=== PATIENT | female | born 1995 | race African-American/Black ===

== ENCOUNTER 2016-06-06 22:36 | Emergency (ER) | payer MEDICAID, OTHER ==
[~2016-06-06] VITALS: Ht 160 cm; Wt 48.5 kg
[~2016-06-06 22:36] MED LIST: ADDE15XR PO; CYPR4TAB PO; SERO300T PO
[2016-06-06 22:39] VITALS: BP 106/65; PULSE 58; RESP 16; TEMP 98; O2SAT 99
[2016-06-07] MEDS ORDERED: IBUP-232 PO (02:26)
== END 2016-06-06 23:35 | disposition left against medical advice (07) ==
LOC: NEPC 22:36
DX: R07.9 Chest pain, unspecified (principal)
CPT/HCPCS: 99281

== ENCOUNTER 2016-06-07 00:35 | Emergency (ER) | payer MEDICAID, OTHER ==
[~2016-06-07] VITALS: Ht 160 cm; Wt 61.5 kg
[2016-06-07 00:52] VITALS: BP 112/75; PULSE 74; RESP 18; O2SAT 99
[2016-06-07] MEDS ORDERED: KETOROLAC TROMETHAMINE 30 MG/ML (IVP) VIAL IV PUSH ONE (01:00)
[2016-06-07] MEDS ORDERED: SODIUM CHLORIDE 0.9% FLUSH 5 ML FLUSH IVF PRN (01:00)
--- NOTE | 2016-06-07 01:02 | RADHPO ---
EXAM DATE/TIME: 06/07/2016 00:55 [place] COMPARISON: No previous studies available for comparison. INDICATIONS : Chest pain. MEDICAL HISTORY : Asthma. SURGICAL HISTORY : None. ENCOUNTER: Initial ACUITY: 1 day PAIN SCORE: 9/10 LOCATION: Bilateral chest FINDINGS: A single view of the chest demonstrates the lungs to be symmetrically aerated without evidence of mas s, infiltrate or effusion. The cardiomediastinal contours are unremarkable. Osseous structures are intact. CONCLUSION: No acute disease. Neil Jones MD on June 07, 2016 at 0:59 Board Certified Radiologist. This report was verified electronically.
[2016-06-07 01:06] VITALS: BP_SYST 112; BP_DIAS 73; BP_DIAS 77; PULSE 68; RESP 20; O2SAT 99
[2016-06-07 01:21] LABS: CHLORIDE 106 MEQ/L (98-107); POTASSIUM 3.1 MEQ/L (3.5-5.1); SODIUM (NA) 142 MEQ/L (136-145)
[2016-06-07 01:24] LABS: ANION GAP 9 MEQ/L (5-15); BASOPHIL # 0.1 TH/MM3 (0-0.2); BASOPHIL % 0.8 % (0.0-2.0); BICARBONATE 27.5 MEQ/L (21.0-32.0); BLOOD UREA NITROGEN 10 MG/DL (7-18); EOSINOPHIL # 0.2 TH/MM3 (0-0.4); EOSINOPHIL % 1.6 % (0.0-4.0); HEMATOCRIT 39.6 % (35.0-46.0); HEMO FLAGS DIFF FINAL; LYMPH % 20.6 % (9.0-44.0); LYMPHOCYTE # 2.6 TH/MM3 (1.0-4.8); MAGNESIUM 2.3 MG/DL (1.5-2.5); MEAN CELL VOLUME 86.1 FL (80.0-100.0); MEAN CORPUSCULAR HEMOGLOBIN 29.3 PG (27.0-34.0); MONO % 4.7 % (0.0-8.0); NEUT % 72.3 % (16.0-70.0); PLATELET COUNT 317 TH/MM3 (150-450); RED CELL DISTRIBUTION WIDTH 13.3 % (11.6-17.2); WHITE BLOOD COUNT 12.5 TH/MM3 (4.0-11.0)
[2016-06-07 01:27] LABS: GLOMERULAR FILTRATION RATE 112 ML/MIN (>89)
[2016-06-07] MEDS ORDERED: POTASSIUM CHLORIDE 20 MEQ CONTROLLED RELEASE TAB PO ONE (01:30)
[2016-06-07 01:58] VITALS: RESP 18
--- NOTE | 2016-06-07 02:21 | PD ---
HPI Chief Complaint: Abdominal Pain Time Seen by Provider: 00:50 Travel History International Travel<30 days: No Contact w/Intl Traveler<30days: No Traveled to known affect area: No History of Present Illness HPI 20 year-old female presents to the emergency department for complaint of chest pain and shortness of breath for the past several days. Patient was reportedly seen at [facility] but because not be seen quickly enough so decided to come to the emergency room here. Patient denies any fever chills nausea vomiting productive cough injury control pill use personal history of family history of clotting disorder or cardiac disease. Patient reports she has severe pain that is unrelieved by Tylenol or ibuprofen. Unable to identify exacerbating or alleviating factors. Pain 10/10 in intensity. PFSH Past Medical History Narrative Medical ADD ADHD asthma bipolar disorder migraine tobacco use alcohol use substance use nursing notes reviewed ADD: Yes ADHD: Yes Asthma: Yes Blood Disorders: No Bipolar Disorder: Yes Anxiety: Yes Depression: No Cancer: No Cardiovascular Problems: No Developmental Delay: No Diabetes: No Diminished Hearing: No Gastrointestinal Disorders: No Neurologic: No Psychiatric: Yes (OCD, ADD, ADHD, ANXIETY) Respiratory: Yes (ASTHMA) Immunizations Current: Yes Migraines: Yes Seizures: No Thyroid Disease: No Tetanus Vaccination: Unknown Influenza Vaccination: No ?: Not LMP: 05/17/16 Past Surgical History Other Surgery: Yes ("HEAD SURGERY") Social History Alcohol Use: Yes (OCC) Tobacco Use: Yes (1 PPD) Substance Use: Yes (MARIJUANA) Allergies-Medications (Allergen,Severity, Reaction): Coded Allergies: No Known Allergies (Verified , 06/07/16) Reported Meds & Prescriptions Reported Meds & Active Scripts Active Ibuprofen 600 Mg Tab 600 Mg PO Q6H PRN Review of Systems Except as stated in HPI: all other systems reviewed are Neg General / Constitutional: No: Fever, Chills HENT: No: Congestion Cardiovascular: Positive: Chest Pain or Discomfort Respiratory: Positive: Shortness of Breath Gastrointestinal: No: Vomiting, Abdominal Pain Genitourinary: No: Flank Pain Musculoskeletal: No: Myalgias, Arthralgias Skin: No Rash Neurologic: No: Weakness Psychiatric: Positive: Anxiety Hematologic/Lymphatic: No: Lymph Node Enlargement Physical Exam Narrative GENERAL: Well-developed well-nourished female in no respiratory distress stating "I'm having chest pain" SKIN: Warm and dry. HEAD: Normocephalic. EYES: No scleral icterus. No injection or drainage. NECK: Supple, trachea midline. No JVD or lymphadenopathy. CARDIOVASCULAR: Regular rate and rhythm without murmurs, gallops, or rubs. Chest wall: Tenderness to palpation without ecchymosis erythema induration bony point tenderness or crepitus RESPIRATORY: Breath sounds equal bilaterally. No accessory muscle use. GASTROINTESTINAL: Abdomen soft, non-tender, nondistended. MUSCULOSKELETAL: No cyanosis, or edema. BACK: Nontender without obvious deformity. No CVA tenderness. Data Data Last Documented VS Vital Signs Date Time Temp Pulse Resp B/P Pulse Ox O2 Delivery O2 Flow Rate FiO2 06/07/16 02:38 65 17 107/68 99 06/07/16 01:06 Room Air Orders Electrocardiogram (06/07/16 00:50) Basic Metabolic Panel (Bmp) (06/07/16 00:50) Complete Blood Count With Diff (06/07/16 00:50) Magnesium (Mg) (06/07/16 00:50) Troponin I (06/07/16 00:50) Chest, Single Ap (06/07/16 00:50) Ecg Monitoring (06/07/16 00:50) Bilateral Bp Monitoring (06/07/16 00:50) Iv Access Insert/Monitor (06/07/16 00:50) Oximetry (06/07/16 00:50) Oxygen Administration (06/07/16 00:50) Sodium Chloride 0.9% Flush (Ns Flush) (06/07/16 01:00) Ed Urine Pregnancytest Poc (06/07/16 00:50) Ketorolac Inj (Toradol Inj) (06/07/16 01:00) Potassium Chloride (Kcl) (06/07/16 01:30) Labs Laboratory Tests Test 06/07/16 01:00 White Blood Count 12.5 TH/MM3 Red Blood Count 4.60 MIL/MM3 Hemoglobin 13.5 GM/DL Hematocrit 39.6 % Mean Corpuscular Volume 86.1 FL Mean Corpuscular Hemoglobin 29.3 PG Mean Corpuscular Hemoglobin 34.0 % Concent Red Cell Distribution Width 13.3 % Platelet Count 317 TH/MM3 Mean Platelet Volume 7.6 FL Neutrophils (%) (Auto) 72.3 % Lymphocytes (%) (Auto) 20.6 % Monocytes (%) (Auto) 4.7 % Eosinophils (%) (Auto) 1.6 % Basophils (%) (Auto) 0.8 % Neutrophils # (Auto) 9.0 TH/MM3 Lymphocytes # (Auto) 2.6 TH/MM3 Monocytes # (Auto) 0.6 TH/MM3 Eosinophils # (Auto) 0.2 TH/MM3 Basophils # (Auto) 0.1 TH/MM3 CBC Comment DIFF FINAL Differential Comment Sodium Level 142 MEQ/L Potassium Level 3.1 MEQ/L Chloride Level 106 MEQ/L Carbon Dioxide Level 27.5 MEQ/L Anion Gap 9 MEQ/L Blood Urea Nitrogen 10 MG/DL Creatinine 0.80 MG/DL Estimat Glomerular Filtration 112 ML/MIN Rate Random Glucose 94 MG/DL Calcium Level 8.6 MG/DL Magnesium Level 2.3 MG/DL Troponin I LESS THAN 0.02 NG/ML MDM Medical Decision Making Medical Screen Exam Complete: Yes Emergency Medical Condition: Yes Medical Record Reviewed: Yes Interpretation(s) Last Impressions Chest X-Ray 06/07/16 0050 Signed Impressions: Service Date/Time: Tuesday, June 07, 2016 00:55 - CONCLUSION: No acute disease. Neil Jones MD CBC & BMP Diagram 06/07/16 01:00 Vital Signs Date Time Temp Pulse Resp B/P Pulse Ox O2 Delivery O2 Flow Rate FiO2 06/07/16 01:06 68 20 112/73 99 Room Air 112/77 06/07/16 01:06 Room Air 06/07/16 01:06 Room Air 06/07/16 00:52 74 18 112/75 99 Differential Diagnosis Chest pain, atypical chest pain, pneumothorax, pleurisy, costochondritis, pneumothorax, PE, ACS, anxiety Narrative Course Patient placed on surveillance system monitor EKG performed specimens collected and sent for resulting sinus bradycardia no acute injury pattern change Patient administered Toradol Patient reports she is ready to be discharged feels well after IV Toradol and is ready to go back to be discharged this time. Patient informed of lab results chest x-ray EKG findings and recommendation for adding potassium- containing foods and beverages to dietary intake Diagnosis Primary Impression: Atypical chest pain Additional Impression: Hypokalemia Referrals: Primary Care Physician call for appointment Patient Instructions: General Instructions Additional Instructions: Increase fluid hydration And potassium containing foods and beverages to dietary intake Take medication as prescribed Follow-up with your primary care provider Tobacco use and substance use Med/Other Pt SpecificInfo: Prescription(s) given Scripts Ibuprofen 600 Mg [id number] Mg PO Q6H PRN (PAIN GREATER THAN 5) #12 TAB Ref 0 Prov:Maura Segura MD 06/07/16 Disposition: 01 DISCHARGE HOME Condition: Stable Maura Segura MD Jun 07, 2016 02:20
[2016-06-07] MEDS ORDERED: IBUP-232 PO (02:26)
[2016-06-07 02:38] VITALS: BP 107/68
--- NOTE | 2016-06-07 22:03 | EKG ---
Date Performed: 06/07/2016 Time Performed: 01:14:28 PTAGE: 20 years EKG: Sinus bradycardia with sinus arrhythmia. Normal ECG except for rate NO PREVIOUS TRACING DOCTOR: Martha Ozuna Interpretating Date/Time 06/07/2016 22:01:53
== END 2016-06-07 02:43 | disposition home or self-care (01) ==
LOC: PHED 00:35
DX: R07.89 Other chest pain (principal); E87.6 Hypokalemia; J45.909 Unspecified asthma, uncomplicated; R00.1 Bradycardia, unspecified; F17.210 Nicotine dependence, cigarettes, uncomplicated
CPT/HCPCS: 71010; 80048; 83735; 84484; 84703; 85025; 93005; 96374; 99285; J1885

== ENCOUNTER 2016-06-15 12:46 | Emergency (ER) | payer MEDICAID ==
[~2016-06-15] VITALS: Ht 160 cm; Wt 61.5 kg
[~2016-06-15 12:46] MED LIST changes: -ADDE15XR PO; -CYPR4TAB PO; +IBUP-232 PO; -SERO300T PO
[2016-06-15 12:47] VITALS: BP 103/58; PULSE 85; RESP 16; TEMP 97.9; O2SAT 98
--- NOTE | 2016-06-15 13:28 | PD ---
HPI Chief Complaint: Medical Clearance Time Seen by Provider: 13:24 Travel History International Travel<30 days: No Contact w/Intl Traveler<30days: No Traveled to known affect area: No History of Present Illness HPI 20-year-old Patient is here for medical clearance so she can return to work after being diagnosed with conjunctivitis. Patient has been using her eyedrops for the past week and symptoms of improved. 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 She has no other current complaints. She has no known drug allergies. PFSH Past Medical History ADD: Yes ADHD: Yes Asthma: Yes Blood Disorders: No Bipolar Disorder: Yes Anxiety: Yes Depression: No Cancer: No Cardiovascular Problems: No Developmental Delay: No Diabetes: No Diminished Hearing: No Gastrointestinal Disorders: No Neurologic: No Psychiatric: Yes (OCD, ADD, ADHD, ANXIETY) Respiratory: Yes (ASTHMA) Immunizations Current: Yes Migraines: Yes Seizures: No Thyroid Disease: No ?: Not LMP: 05/20/16 Past Surgical History Other Surgery: Yes ("HEAD SURGERY") Social History Alcohol Use: Yes (OCC) Tobacco Use: Yes (1 PPD) Substance Use: Yes (MARIJUANA) Allergies-Medications (Allergen,Severity, Reaction): Coded Allergies: No Known Allergies (Verified , 06/07/16) Reported Meds & Prescriptions Reported Meds & Active Scripts Active Ibuprofen 600 Mg Tab 600 Mg PO Q6H PRN Review of Systems Except as stated in HPI: all other systems reviewed are Neg General / Constitutional: No: Fever Eyes: No: Visual changes HENT: No: Headaches Cardiovascular: No: Chest Pain or Discomfort Respiratory: No: Shortness of Breath Gastrointestinal: No: Abdominal Pain Genitourinary: No: Dysuria Musculoskeletal: No: Pain Skin: No Rash Neurologic: No: Weakness Psychiatric: No: Depression Endocrine: No: Polydipsia Hematologic/Lymphatic: No: Easy Bruising Physical Exam Narrative GENERAL: No acute distress. SKIN: Warm and dry. HEAD: Atraumatic. Normocephalic. EYES: Pupils equal and round. No scleral icterus. No injection or drainage. ENT: No nasal bleeding or discharge. Mucous membranes pink and moist. Pharynx is normal. NECK: Trachea midline. No JVD. Supple nontender. CARDIOVASCULAR: Regular rate and rhythm. RESPIRATORY: No accessory muscle use. Clear to auscultation. Breath sounds equal bilaterally. MUSCULOSKELETAL: Extremities without clubbing, cyanosis, or edema. No obvious deformities. NEUROLOGICAL: Awake and alert. No obvious cranial nerve deficits. Motor grossly within normal limits. Five out of 5 muscle strength in the arms and legs. Normal speech. PSYCHIATRIC: Appropriate mood and affect; insight and judgment normal. Data Data Last Documented VS Vital Signs Date Time Temp Pulse Resp B/P Pulse Ox O2 Delivery O2 Flow Rate FiO2 06/15/16 12:47 97.9 85 16 103/58 98 Room Air MDM Medical Decision Making Medical Screen Exam Complete: Yes Emergency Medical Condition: Yes Differential Diagnosis Conjunctivitis. Need for medical clearance. Need for work note. Narrative Course Patient is medically stable. Patient is to finish upper ophthalmic drops as previous. Work note is given. Diagnosis Primary Impression: Conjunctivitis Qualified Code: H10.33 - Acute bacterial conjunctivitis of both eyes Referrals: Primary Care Physician Patient Instructions: General Instructions Departure Forms: Work Release Enter return to work date: Jun 16, 2016 Med/Other Pt SpecificInfo: No Change to Meds Disposition: 01 DISCHARGE HOME Condition: Stable Ashish Ellis Jun 15, 2016 13:28
== END 2016-06-15 14:37 | disposition home or self-care (01) ==
LOC: NEPB 12:46
DX: H10.33 Unspecified acute conjunctivitis, bilateral (principal)
CPT/HCPCS: 99281

== ENCOUNTER 2016-07-26 21:03 | Emergency (ER) | payer MEDICAID, OTHER ==
[2016-07-26 22:21] LABS: AUTOMATED NEUTROPHIL # 11.6 TH/MM3 (1.8-7.7); BASOPHIL % 0.4 % (0.0-2.0); EOSINOPHIL % 0.2 % (0.0-4.0); HEMATOCRIT 41.1 % (35.0-46.0); HEMO FLAGS DIFF FINAL; LYMPH % 7.6 % (9.0-44.0); MEAN CELL VOLUME 88.1 FL (80.0-100.0); MEAN CORPUSCULAR HGB CONC 34.1 % (32.0-36.0); MONO % 4.1 % (0.0-8.0); NEUT % 87.7 % (16.0-70.0); PLATELET COUNT 283 TH/MM3 (150-450); RED BLOOD COUNT 4.66 MIL/MM3 (4.00-5.30); RED CELL DISTRIBUTION WIDTH 13.9 % (11.6-17.2); WHITE BLOOD COUNT 13.2 TH/MM3 (4.0-11.0)
[2016-07-26] MEDS ORDERED: HALOPERIDOL LACTATE 5 MG/ML AMP IM ONE (22:30)
[2016-07-26] MEDS ORDERED: diphenhydrAMINE HCL 50 MG/ML VIAL IM ONE (22:30)
[2016-07-26] MEDS ORDERED: LORazepam 2 MG/ML VIAL IM ONE (22:30)
[2016-07-26 22:49] LABS: ANION GAP 8 MEQ/L (5-15); AST (GOT) 16 U/L (16-38); BICARBONATE 23.9 MEQ/L (21.0-32.0); BLOOD UREA NITROGEN 9 MG/DL (7-18); CHLORIDE 108 MEQ/L (98-107); GLOMERULAR FILTRATION RATE 87 ML/MIN (>89); POTASSIUM 3.8 MEQ/L (3.5-5.1); SODIUM (NA) 140 MEQ/L (136-145)
[2016-07-26 22:51] LABS: ALKALINE PHOSPHATASE 49 U/L (45-117); ALT (GPT) 21 U/L (9-42); TOTAL BILIRUBIN ADULT 0.4 MG/DL (0.2-1.0)
[2016-07-26 22:53] LABS: ACETAMINOPHEN LESS THAN 2.0 MCG/ML (10.0-30.0)
--- NOTE | 2016-07-27 00:26 | PD ---
HPI Chief Complaint: Psychiatric Symptoms Time Seen by Provider: 00:23 Travel History International Travel<30 days: No Contact w/Intl Traveler<30days: No Traveled to known affect area: No History of Present Illness HPI 20-year-old black female presents to emergency department under [place] act by PD. The patient had allegedly made suicidal statements. She had gone into the bathroom with a knife. The patient here denies making any statements. She denies any suicidal homicidal ideation. She denies any toxic ingestions. PFSH Past Medical History ADD: Yes ADHD: Yes Asthma: Yes Blood Disorders: No Bipolar Disorder: Yes Anxiety: Yes Depression: No Cancer: No Cardiovascular Problems: No Developmental Delay: No Diabetes: No Diminished Hearing: No Gastrointestinal Disorders: No Neurologic: No Psychiatric: Yes (OCD, ADD, ADHD, ANXIETY) Respiratory: Yes (ASTHMA) Immunizations Current: Yes Migraines: Yes Seizures: No Thyroid Disease: No Tetanus Vaccination: < 5 Years Past Surgical History Narrative Surgical Right index finger surgery, forearm surgery Other Surgery: Yes ("HEAD SURGERY") Social History Alcohol Use: Yes (OCC) Tobacco Use: Yes (1 PPD) Substance Use: Yes (MARIJUANA) Allergies-Medications (Allergen,Severity, Reaction): Coded Allergies: No Known Allergies (Verified , 06/07/16) Reported Meds & Prescriptions Reported Meds & Active Scripts Active Ibuprofen 600 Mg Tab 600 Mg PO Q6H PRN Review of Systems Except as stated in HPI: all other systems reviewed are Neg Psychiatric: Positive: Mood Disorder, Substance Abuse, No: Anxiety, Depression , Suicidal Ideations, Disorder of Thought, Homicidal Ideation Physical Exam Narrative GENERAL: Well-nourished, well-developed patient. SKIN: Warm and dry. HEAD: Normocephalic and atraumatic. EYES: No scleral icterus. No injection or drainage. ENT: No nasal drainage noted. Mucous membranes pink. Airway patent. NECK: Supple, trachea midline. Moves head freely without obvious discomfort. CARDIOVASCULAR: Regular rate and rhythm without murmurs, gallops, or rubs. RESPIRATORY: Breath sounds equal bilaterally. No accessory muscle use. GASTROINTESTINAL: Abdomen soft, non-tender, nondistended. EXTREMITIES: No cyanosis or edema. BACK: Nontender without obvious deformity. No CVA tenderness. NEURO: Patient is alert and oriented. no sensorimotor deficits. Nonfocal. Normal speech. PSYCH: No delusions. No auditory or visual hallucinations. Data Data Orders Complete Blood Count With Diff (07/26/16 21:53) Comprehensive Metabolic Panel (07/26/16 21:53) Alcohol (Ethanol) (07/26/16 21:53) Salicylates (Aspirin) (07/26/16 21:53) Psych Screen (07/26/16 21:53) Tylenol (Acetaminophen) (07/26/16 21:53) Drug Screen, Random Urine (07/26/16 21:53) Ed Urine Pregnancytest Poc (07/26/16 21:53) Lorazepam Inj (Ativan Inj) (07/26/16 22:30) Haloperidol Inj (Haldol Inj) (07/26/16 22:30) Diphenhydramine Inj (Benadryl Inj) (07/26/16 22:30) Restraints Violent (07/26/16 23:01) Diet Regular Basic (07/27/16 Breakfast) Labs Laboratory Tests Test 07/26/16 21:40 White Blood Count 13.2 TH/MM3 Red Blood Count 4.66 MIL/MM3 Hemoglobin 14.0 GM/DL Hematocrit 41.1 % Mean Corpuscular Volume 88.1 FL Mean Corpuscular Hemoglobin 30.0 PG Mean Corpuscular Hemoglobin 34.1 % Concent Red Cell Distribution Width 13.9 % Platelet Count 283 TH/MM3 Mean Platelet Volume 7.5 FL Neutrophils (%) (Auto) 87.7 % Lymphocytes (%) (Auto) 7.6 % Monocytes (%) (Auto) 4.1 % Eosinophils (%) (Auto) 0.2 % Basophils (%) (Auto) 0.4 % Neutrophils # (Auto) 11.6 TH/MM3 Lymphocytes # (Auto) 1.0 TH/MM3 Monocytes # (Auto) 0.5 TH/MM3 Eosinophils # (Auto) 0.0 TH/MM3 Basophils # (Auto) 0.0 TH/MM3 CBC Comment DIFF FINAL Differential Comment Sodium Level 140 MEQ/L Potassium Level 3.8 MEQ/L Chloride Level 108 MEQ/L Carbon Dioxide Level 23.9 MEQ/L Anion Gap 8 MEQ/L Blood Urea Nitrogen 9 MG/DL Creatinine 0.99 MG/DL Estimat Glomerular Filtration 87 ML/MIN Rate Random Glucose 84 MG/DL Calcium Level 9.2 MG/DL Total Bilirubin 0.4 MG/DL Aspartate Amino Transf 16 U/L (AST/SGOT) Alanine Aminotransferase 21 U/L (ALT/SGPT) Alkaline Phosphatase 49 U/L Total Protein 8.0 GM/DL Albumin 4.4 GM/DL Salicylates Level 1.7 MG/DL Acetaminophen Level LESS THAN 2.0 MCG/ML Ethyl Alcohol Level LESS THAN 3 MG/DL MDM Medical Decision Making Medical Screen Exam Complete: Yes Emergency Medical Condition: Yes Medical Record Reviewed: Yes Interpretation(s) Laboratory Tests Test 07/26/16 21:40 White Blood Count 13.2 TH/MM3 Red Blood Count 4.66 MIL/MM3 Hemoglobin 14.0 GM/DL Hematocrit 41.1 % Mean Corpuscular Volume 88.1 FL Mean Corpuscular Hemoglobin 30.0 PG Mean Corpuscular Hemoglobin 34.1 % Concent Red Cell Distribution Width 13.9 % Platelet Count 283 TH/MM3 Mean Platelet Volume 7.5 FL Neutrophils (%) (Auto) 87.7 % Lymphocytes (%) (Auto) 7.6 % Monocytes (%) (Auto) 4.1 % Eosinophils (%) (Auto) 0.2 % Basophils (%) (Auto) 0.4 % Neutrophils # (Auto) 11.6 TH/MM3 Lymphocytes # (Auto) 1.0 TH/MM3 Monocytes # (Auto) 0.5 TH/MM3 Eosinophils # (Auto) 0.0 TH/MM3 Basophils # (Auto) 0.0 TH/MM3 CBC Comment DIFF FINAL Differential Comment Sodium Level 140 MEQ/L Potassium Level 3.8 MEQ/L Chloride Level 108 MEQ/L Carbon Dioxide Level 23.9 MEQ/L Anion Gap 8 MEQ/L Blood Urea Nitrogen 9 MG/DL Creatinine 0.99 MG/DL Estimat Glomerular Filtration 87 ML/MIN Rate Random Glucose 84 MG/DL Calcium Level 9.2 MG/DL Total Bilirubin 0.4 MG/DL Aspartate Amino Transf 16 U/L (AST/SGOT) Alanine Aminotransferase 21 U/L (ALT/SGPT) Alkaline Phosphatase 49 U/L Total Protein 8.0 GM/DL Albumin 4.4 GM/DL Salicylates Level 1.7 MG/DL Acetaminophen Level LESS THAN 2.0 MCG/ML Ethyl Alcohol Level LESS THAN 3 MG/DL Differential Diagnosis MDM: High Differential diagnoses: Schizophrenia, schizoaffective disorder, bipolar, anxiety, depression, adjustment reaction, mood disorder NOS, ODD, depressive disorder NOS, dementia, dementia with agitation, psychosis NOS, substance induced mood disorder, intermittent explosive disorder, Asperger syndrome, infection,electrolyte abnormality, malingering. Narrative Course Mental health screening discussed with the patient. Psychiatric screen ordered. The patient had become combative and noncompliant. Dr. Perez had ordered restraints and medications for the patient. The patient has now become cooperative she is taken out of restraints per protocol. This is mood disorder NOS, medical clearance Diagnosis Primary Impression: Unspecified episodic mood disorder Additional Impression: Medical clearance for psychiatric admission Condition: Stable Eligio Zuleta Jul 27, 2016 00:26
[2016-07-27 02:00] VITALS: BP_SYST 142; BP_SYST 90; BP_DIAS 55; BP_DIAS 85; PULSE 60; PULSE 80; RESP 17; RESP 18; O2SAT 97; O2SAT 99
[2016-07-27 06:27] VITALS: BP 119/70; PULSE 61; RESP 16; O2SAT 96
[2016-07-27 13:00] VITALS: BP 96/57; PULSE 73; RESP 18
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
== END 2016-07-27 14:03 | disposition home or self-care (01) ==
LOC: NEPJ 21:03
DX: F43.20 Adjustment disorder, unspecified (principal); F90.9 Attention-deficit hyperactivity disorder, unspecified type; J45.909 Unspecified asthma, uncomplicated; F31.9 Bipolar disorder, unspecified; F17.200 Nicotine dependence, unspecified, uncomplicated
CPT/HCPCS: 80053; 80307; 84703; 85025; 96372; 99285; J1200; J1630; J2060

== ENCOUNTER 2017-10-03 17:44 | Emergency (ER) | payer MEDICAID, OTHER ==
[~2017-10-03] VITALS: Ht 160 cm; Wt 55.0 kg
[2017-10-03 17:51] VITALS: BP 118/74; PULSE 74; RESP 20; TEMP 100.1; O2SAT 100
[2017-10-03 18:37] VITALS: BP 116/87; PULSE 86; RESP 18; O2SAT 99
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
[2017-10-03] MEDS ORDERED: ACETAMINOPHEN 325 MG TAB PO ONE (19:15)
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
[2017-10-03] MEDS ORDERED: IBUP-232 PO (19:40)
== END 2017-10-03 20:01 | disposition home or self-care (01) ==
LOC: NEPE 17:44
DX: S01.312A Laceration without foreign body of left ear, initial encounter (principal); S09.90XA Unspecified injury of head, initial encounter; Y00.XXXA Assault by blunt object, initial encounter; F31.9 Bipolar disorder, unspecified; F41.9 Anxiety disorder, unspecified; F42.9 Obsessive-compulsive disorder, unspecified; F90.9 Attention-deficit hyperactivity disorder, unspecified type; J45.909 Unspecified asthma, uncomplicated; F17.200 Nicotine dependence, unspecified, uncomplicated; Z91.14 Patient's other noncompliance with medication regimen
CPT/HCPCS: 70450; 99283